=== PATIENT | female | born 1980 | race African-American/Black ===

== ENCOUNTER → 2017-05-31 | Outpatient (CLI) | payer OTHER ==
--- NOTE | 2017-05-31 15:37 | Diagnostic Imaging Report ---
PROCEDURE: X-RAY LUMBAR SPINE, TWO VIEWS COMPARISON: None. INDICATIONS: LOWER BACK PAIN FINDINGS: The lumbar spine is in anatomic alignment without evidence of fracture, spondylolisthesis, or spondylolysis. Vertebral body heights and disc spaces are maintained. The paraspinal soft tissues are normal. CONCLUSION: No acute radiographic abnormality. Dictated by: Keith Harris M.D. on 05/31/2017 at 15:38 Electronically approved by: Keith Harris M.D. on 05/31/2017 at 15:38
== END ==
LOC: RAD 14:24
PROVIDERS: ATTEND Family Medicine
DX: M54.5 Low back pain (principal)
CPT/HCPCS: 72100